=== PATIENT | male | born 1950 | race Two or more races ===

== ENCOUNTER → 2020-09-17 16:25 | Outpatient (CLI) | payer MEDICARE, SELFPAY ==
[2020-09-17 17:11] LABS: Bacteria 0 SEEN /hpf (None Seen); Mucous, Urine 0 SEEN /hpf (<or=2+); White Blood Cells 0 SEEN /hpf (0-5)
[2020-09-17 17:33] LABS: Color, Urine Yellow (Yellow); Glucose, Dipstick Normal (Normal); Ketone-Dipstick Negative (Negative); Leukocyte Esterase-Dipstick Negative /ul (Negative); Nitrite-Dipstick Negative (Negative); Occult Blood-Urine 25 /ul (Negative); Protein-Dipstick Negative (Negative); Urine Bilirubin Dipstick Negative (Negative); Urine Clarity Clear (Clear); Urine Urobilinogen Normal (Normal)
[2020-09-17 17:48] LABS: Red Blood Cells-Urine 0-5 SEEN /hpf (0-5); Squamous Epithelial Cells - UA 0-5 SEEN /hpf (0-5)
== END ==
PROVIDERS: Referring Provider Nurse Practitioner Adult Health; Visit Provider Nurse Practitioner Adult Health
DX: R31.29 Other microscopic hematuria (principal)
CPT/HCPCS: 81001

== ENCOUNTER → 2020-10-08 11:49 | Outpatient (CLI) | payer MEDICARE, SELFPAY ==
--- NOTE | 2020-10-08 11:56 | EKG12_ITS ---
Test Reason : PRE O Blood Pressure : / mmHG Vent. Rate : 073 BPM Atrial Rate : 073 BPM P-R Int : 158 ms QRS Dur : 086 ms QT Int : 384 ms P-R-T Axes : 031 -23 011 degrees QTc Int : 423 ms Normal sinus rhythm Normal ECG Confirmed by YOHAN RAMÍREZ, ALONA ([id number]), make up editor TEAGAN MINA ([id number]) on 10/09/2020 7:38:31 AM Referred By: Serge Wang Confirmed By:ALONA ALMANZAR MD
[2020-10-08 12:57] LABS: Hematocrit 47.4 % (40-54); Hemoglobin 16.1 g/dL (13.0-16.5); Mean Corpuscular Hgb 32.1 pg (27.0-32.0); Mean Corpuscular Volume 94.4 fL (80-94); Platelet Count 247 K/mm3 (150-450); RBC Distribution Width CV 13.1 % (11.6-14.6); Red Blood Count 5.02 M/mm3 (4.6-6.2); White Blood Count 6.3 K/mm3 (4.4-11.0)
[2020-10-08 13:43] LABS: Anion Gap 7 (5-15); BUN 10 mg/dL (7-18); BUN/Creat Ratio 10.4 RATIO (10-20); Calcium,Total 8.8 mg/dL (8.5-10.1); Chloride 105 mmol/L (98-107); Creatinine, Serum 0.96 mg/dL (0.70-1.30); EST Glomerular Filtration Rate 83 mL/min (>60); Est Glom Filt Rate - Afr Amer 100 mL/min (>60); Glucose 97 mg/dL (74-106); Potassium 4.1 mmol/L (3.5-5.1); Sodium Level 139 mmol/L (136-145)
== END ==
PROVIDERS: PCP Family Medicine; Referring Provider Urology; Visit Provider Urology
DX: Z01.818 Encounter for other preprocedural examination (principal)
CPT/HCPCS: 36415; 80048; 85027; 93005

== ENCOUNTER → 2024-08-16 | Outpatient (CLI) | payer MEDICARE, SELFPAY ==
--- NOTE | 2024-08-16 08:00 | PROSBIL_PTH ---
PATIENT: ERIN DOWNS LOC: [facility] U#:[id number] AGE/SX: 74/M ROOM: RE08/16/[address]: Dr. Serge Wang MD : [id number] BED: DIS: 08/16/2024 SPEC #: [id number] RECD: 08/16/24 12:00 STATUS: SENTHIL RETera #: [id number] DUSTY: 08/16/24 08:[address]: Serge Wang DEPT: SURGICAL PATHOLOGY RECD BY: Brice Whitehead ENTERED: 08/17/24 08:43 SP TYPE: PROST BX LESLI DR: Dr. Puneet Gurrola DO Tissues: A - PROSTATE RIGHT B - PROSTATE RIGHT C - PROSTATE LEFT D - PROSTATE LEFT E - PROSTATE LEFT Procedures: PROSTATE BX Immunohistochemical Stains HEADER OPERATION: Prostate biopsy PRE-OP DIAGNOSIS: Elevated PSA TISSUE SUBMITTED: A- Right apex, B- Right base, C- Left apex, D- Left mid, E- Left base MICROSCOPIC DIAGNOSIS A. Prostate, right apex, biopsy: * Benign prostate tissue. B. 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 * High grade PIN. * IHC for [id number] supports the histologic impression. C. Prostate, left apex, biopsy: * Benign prostate tissue D. Prostate, left mid, biopsy: * Benign prostate tissue. E. Prostate, left base, biopsy: * Benign prostate tissue. MICROSCOPIC DESCRIPTION Slides are reviewed. All matched controls reacted appropriately. These tests were developed and their performance characteristics determined by [facility]. They may not have been cleared or approved by the [place] Food and Drug Administration. The FDA has determined that such clearance or approval is not necessary.? The above immunohistochemical/dualISH?markers are ordered and reviewed by the Pathologist. GROSS DESCRIPTION A. Received in formalin in a container labeled with the patient's name, date of , and RA are 2 white and wispy core biopsies of soft tissue each measuring 1.1 x 0.1 cm. Submitted in toto in A1. B. Received in formalin in a container labeled with the patient's name, date of , and RB are 2 white and wispy core biopsies each measuring 1.4 x 0.1 cm, with multiple core biopsy fragments measuring 0.6 x 0.3 x 0.1 cm in aggregate. Submitted in toto in B1. C. Received in formalin in a container labeled with the patient's name, date of , and LA is a 0.7 x 0.1 cm white and wispy core biopsy of soft tissue. Submitted in toto in C1. D. Received in formalin in a container labeled with the patient's name, date of , and LM is a 1.1 x 0.1 cm white and wispy core biopsy of soft tissue. Submitted in toto in D1. E. Received in formalin in a container labeled with the patient's name, date of , and LB is a 0.9 x 0.1 cm white and wispy core biopsy of soft tissue. Submitted in toto in E1. [facility] 08-17-2024 CPT: 10785n4,47731
== END | disposition home or self-care (01) ==
LOC: LABSPEC 15:46
PROVIDERS: PCP Family Medicine; Referring Provider Urology; Visit Provider Urology
DX: R97.20 Elevated prostate specific antigen [PSA] (principal)
CPT/HCPCS: 88305; 88342; G0416